=== PATIENT | male | born 1960 | race Caucasian/White ===

== ENCOUNTER 2020-05-25 12:20 | Emergency (ER) | payer BC, OTHER ==
[2020-05-25] MEDS ORDERED: Ketorolac Tromethamine 30 MG/ML VIAL ONE (12:41)
[2020-05-25] MEDS ORDERED: Ondansetron PF 4 MG/2 ML Vial ONE (12:43)
[2020-05-25 13:14] LABS: #Basophils 0.1 thou/uL (0.0-0.2); #Lymphocytes 1.3 thou/uL (1.20-3.40); #Monocytes 0.5 thou/uL (0.11-0.59); #Neutrophils 10.1 thou/uL (1.40-6.50); %Basophils 0.4 % (0.0-1.0); %Eosinophils 0.3 % (0.0-10.0); %Lymphocytes 10.6 % (21.0-51.0); %Monocytes 4.2 % (0.0-10.0); %Neutrophils 84.4 % (42.0-75.0); Hemoglobin 15.9 g/dL (14.0-18.0); Mean Corpuscular HGB CONC 31.6 g/dL (32.0-36.0); Mean Corpuscular Hemoglobin 28.6 pg (27.0-31.0); Mean Corpuscular Volume 90.6 fL (78.0-98.0); Mean Platelet Volume 8.4 fL (7.4-10.4); Platelet Count 226 thou/uL (130-400); RBC Distribution Width 12.9 % (11.5-14.5); Red Blood Cell (RBC) Count 5.54 mill/uL (4.70-6.10); White Blood Cell (WBC) Count 11.9 thou/uL (4.8-10.8)
[2020-05-25 13:24] LABS: Bilirubin Negative (Negative); Blood, Urine Large (Negative); Clarity Clear (Clear); Glucose, Urine (Dipstick) Negative (Negative); Ketone, Urine Negative (Negative); Leukocyte Negative (Negative); Nitrite Negative (Negative); Protein, Urine (Dipstick) Negative (Neg-Trace); Urobilinogen 0.2 mg/dL (Less than 2); pH, Urine 7.5 (5.0-9.0)
[2020-05-25 13:26] LABS: Bacteria/HPF None Seen HPF (None Seen); Squamous Epithelial 0-3 HPF (0-3); WBC/HPF None Seen HPF (0-3)
[2020-05-25 13:27] LABS: ALT (SGPT) 27 U/L (8-55); AST (SGOT) 23 U/L (5-34); Albumin 4.4 g/dL (3.5-5.0); Alkaline Phosphatase 45 U/L (40-110); Anion Gap 18 mmol/L (10-20); BUN (Urea Nitrogen) 19 mg/dL (8.4-25.7); Bilirubin, Total 0.4 mg/dL (0.2-1.2); Calc. Creatinine Clearance 0 mL/min (70-130); Calcium 9.8 mg/dL (7.8-10.44); Carbon Dioxide 21 mmol/L (22-29); Chloride 105 mmol/L (98-107); Globulin 2.8 g/dL (2.4-3.5); Glucose 141 mg/dL (70-105); Potassium 3.7 mmol/L (3.5-5.1); Protein, Total 7.2 g/dL (6.0-8.3); Sodium 140 mmol/L (136-145)
--- NOTE | 2020-05-25 14:00 | CT ---
CT Stone Protocol 05/25/2020 1:31 PM HISTORY: Right lower quadrant pain with pain rating to back. Nausea and vomiting. COMPARISON: None. Technique: Multiple contiguous axial CT images are obtained through the abdomen and pelvis without IV contrast. Coronal reformats are provided. FINDINGS: This examination is limited for the evaluation of solid organs and vascular structures due to the lac k of intravenous contrast. Lower Chest: Calcified granuloma seen right lower lobe. Lung bases otherwise appear clear. Liver: Grossly normal nonenhanced CT appearance. Gallbladder: Within normal limits for CT imaging. Pancreas: Grossly normal nonenhanced CT appearance. Spleen: Grossly normal nonenhanced CT appearance. Adrenals: Grossly normal nonenhanced CT appearance. Kidneys and ureters: Moderate bilateral hydronephrosis and hydroureter is present with a 5 mm calculu s seen in the proximal right ureter and an approximately 7 mm calculus seen in the proximal left ureter each of which is at the level of the L4 vertebral body. Punctate nonobstructing renal calculus is also seen in midportion of each kidney. Minimal nonspecific but symmetric perinephric stranding is present. Urinary bladder: Incompletely decompressed. Reproductive Organs: No pelvic masses. Lymph Nodes: No enlarged lymph nodes. Bowel: Evidence of colonic diverticulosis. Loops of small bowel are normal in caliber. Appendix: The appendix is normal in caliber. Peritoneum: No free fluid, free air, or fluid collection. Retroperitoneum: within normal limits. Vessels: Mild scattered vascular calcifications.. Abdominal Wall: There are surgical clips seen in the limited visualized upper portion of the left scr otum which may related to prior vasectomy. Clinical correlation suggested. Bones: Degenerative changes in the spine. No suspicious lytic or sclerotic osseous lesion is identifi ed. IMPRESSION: 1. Partially obstructing bilateral proximal ureteral calculi each of which is located at the level of the L4 vertebral body with calculus on the right measuring 5 mm and calculus in the left measuring 7 mm. There is resultant mild to hydronephrosis and hydroureter. 2. Punctate nonobstructing bilateral renal calculi. 3. Colonic diverticulosis.
== END 2020-05-25 14:40 | disposition home or self-care (01) ==
LOC: NAV ERS 12:20
DX: N13.2 Hydronephrosis with renal and ureteral calculous obstruction (principal); E78.5 Hyperlipidemia, unspecified; E78.00 Pure hypercholesterolemia, unspecified; I10 Essential (primary) hypertension; M10.9 Gout, unspecified; F17.220 Nicotine dependence, chewing tobacco, uncomplicated; Z79.899 Other long term (current) drug therapy
CPT/HCPCS: 74176; 80053; 81003; 81015; 85025; 96374; 96375; J1885; J2405